=== PATIENT | male | born 1965 | race Caucasian/White ===

== ENCOUNTER 2022-10-29 16:00 | Outpatient (RCR) | payer BC, SELFPAY | END 2022-12-01 08:55 | disposition home or self-care (01) | LOC: PT 16:00 | PROVIDERS: Visit Provider Orthopaedic Surgery Adult Reconstructive Orthopaedic Surgery | DX: M75.41 Impingement syndrome of right shoulder (principal) | CPT/HCPCS: 97110; 97163 ==

== ENCOUNTER 2025-01-08 15:00 | Outpatient (RCR) | payer BC, SELFPAY | END 2025-01-08 23:59 | disposition home or self-care (01) | LOC: PT 15:00 | PROVIDERS: Visit Provider Nurse Practitioner | DX: M72.2 Plantar fascial fibromatosis (principal); M24.871 Other specific joint derangements of right ankle, not elsewhere classified; M79.671 Pain in right foot | CPT/HCPCS: 97014; 97035; 97110; 97140; 97163; G0283 ==

== ENCOUNTER 2025-01-29 15:00 | Outpatient (RCR) | payer BC, SELFPAY | END 2025-01-29 23:59 | disposition home or self-care (01) | LOC: PT 15:00 | PROVIDERS: Visit Provider Nurse Practitioner | DX: M72.2 Plantar fascial fibromatosis (principal); M24.871 Other specific joint derangements of right ankle, not elsewhere classified | CPT/HCPCS: 97014; 97035; 97110; 97530; G0283 ==